=== PATIENT | female | born 1950 | race Caucasian/White ===

== ENCOUNTER 2019-10-14 14:32 | Outpatient (CLI) | payer MEDICARE, OTHER, SELFPAY ==
--- NOTE | 2019-10-14 14:49 | MM_ITS ---
WS: [id number] BILATERAL SCREENING DIGITAL MAMMOGRAM WITH CAD HISTORY: SCREENING COMPARISON: 04/05/2018 and 09/05/2017 and 02/15/2017 Bilateral CC and MLO views submitted. Computer aided detection analyzed. Breast composition: There are scattered areas of fibroglandular density. No suspicious masses, microc alcifications or architectural distortion. Benign calcifications within each breast. MM/[place] [id number] IMPRESSION: BI-RADS: 2-Benign FOLLOW UP: 1 Year Follow-up
== END 2019-10-14 14:33 | disposition home or self-care (01) ==
LOC: RADSHAW 14:47
PROVIDERS: PCP Family Medicine; Visit Provider Family Medicine
DX: Z12.31 Encounter for screening mammogram for malignant neoplasm of breast (principal)
CPT/HCPCS: 77067

== ENCOUNTER 2020-11-30 12:15 | Outpatient (CLI) | payer MEDICARE, OTHER, SELFPAY ==
--- NOTE | 2020-11-30 12:26 | US_ITS ---
WS: [id number] TRANSABDOMINAL PELVIC AND TRANSVAGINAL PELVIC ULTRASOUND HISTORY: VAGINAL BLEEDING COMPARISON: None. Technically very limited evaluation of the uterus and adnexa. Uterus: 6.9 cm x 3.4 cm x 2.7 cm. Uterus is retroverted. No fibroid identified. Uterus appears small. Endometrium: 0.8 cm. Endometrium is poorly visualized and measures just slightly greater than expecte d for normal. Proximal portion of the endometrium is slightly bulbous as compared to the remaining en dometrium. Neither ovary is identified. No adnexal masses. There is no free fluid. US/US pelvic with transvaginal IMPRESSION: 1. Difficult evaluation of the uterus and adnexa. 2. Neither ovary identified. 3. Slightly bulbous endometrium measures slightly greater than expected. Hyper plasia versus endometrial neoplasm. Hysteroscopy may be necessary.
== END 2020-11-30 12:16 | disposition home or self-care (01) ==
LOC: RAD 12:21
PROVIDERS: PCP Family Medicine; Visit Provider Family Medicine
DX: N93.9 Abnormal uterine and vaginal bleeding, unspecified (principal)
CPT/HCPCS: 76830; 76856

== ENCOUNTER → 2021-01-18 16:40 | Outpatient (BNVA) | payer MEDICARE, OTHER, SELFPAY | PROVIDERS: PCP Family Medicine; Visit Provider Obstetrics & Gynecology | DX: N95.0 Postmenopausal bleeding (principal) | CPT/HCPCS: 88175 ==

== ENCOUNTER → 2021-01-28 14:40 | Outpatient (BNVA) | payer MEDICARE, OTHER, SELFPAY | PROVIDERS: PCP Family Medicine; Visit Provider Obstetrics & Gynecology | DX: N84.0 Polyp of corpus uteri (principal); Z20.822 Contact with and (suspected) exposure to COVID-19 | CPT/HCPCS: 87635 ==

== ENCOUNTER 2021-02-03 06:00 | Day surgery (SDC) | payer MEDICARE, OTHER, SELFPAY ==
[2021-01-27 13:55] VITALS: BMI 43.2
--- NOTE | 2021-01-27 14:38 | P.ANESASSM_ITS ---
Pre-Anesthetic Assessment Pre-Anesthetic Assessment: Height/Weight: Height 1.51 m Weight 98.883 kg Preop Diagnosis: Endometrial polyp Proposed Procedure: Operation Date: 02/03/21 07:00 Proposed Procedures p Hysteroscopy w/ Myosure [id number] n84.0(Not Applicable) - Jasmyn Davidson MD s Dilation And Curettage (D&C)(Not Applicable) - Jasmyn Singh MD Familial anesthetic complications: None Was Beta Herb taken within 24 hours: N/A Was Clonidine taken within 24 hours: N/A Social: Social History: No alcohol and No tobacco Exam: Pre-Anes Outpt Exam: alert, oriented x 3, clear to auscultation bilaterally and regular rate & rhythm Airway: Cervical ROM: WNL MP: 3 Dentition: Partials CV/HEM: CV/HEM: HTN GI: GI: GERD Metabolic: Metabolic: Morbid obesity Neuropsych: Neuropsych: Neuropathy Anesthetic Plan: Anesthesia: General Other: patient declines all albumin, blood products, and cellsaver even in continuity Risk of > 500 ml blood loss (7ml/kg in children): No PFSH Anesthesia PFSH: Medical History Chronic hypertension Diagnosed in 2011 and has been on medication since that managed by her primary care provider. 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 No pertinent past medical history Denies diabetes, asthma, seizures, DVT/PE PCP: Dr. Bazzi Surgical History S/P cholecystectomy laparoscopic procedure in 2011 Family History Father Diabetes Heart disease Brother Heart disease x 2 Denies family history of Colon cancer Ovarian cancer Hyperlipidemia Breast cancer Hypertension Uterine cancer Thyroid condition Stroke Data Anesthesia Cardiac Studies: No Data to Display
[2021-01-27 16:52] LABS: Basophils # 0.1 10^3/uL (0.0-0.1); Basophils % 0.5 %; Eosinophils # 0.1 10^3/uL (0.0-0.8); Eosinophils % 1.2 %; Hematocrit 39.7 % (37.0-47.0); Hemoglobin 12.3 g/dL (11.5-15.3); Lymphocytes # 3.4 10^3/uL (0.8-4.8); Lymphocytes % 29.7 %; Mean Corpuscular Hemoglobin 26.4 pg (28.0-34.0); Mean Corpuscular Volume 85.2 fL (81-99); Mean Platelet Volume 10.5 fL (7.4-10.4); Monocytes # 0.7 10^3/uL (0.2-0.9); Monocytes % 6.3 %; Neutrophils # 7.15 10^3/uL (1.8-7.7); Neutrophils % 61.9 %; Nucleated Red Blood Cells % 0 %; Platelet Count 470 10^3/cmm (130-400); Red Blood Count 4.66 10^6/uL (4.1-5.3); Red Cell Distribution Width 15.9 % (12.1-15.1); White Blood Count 11.6 10^3/uL (4.0-10.0)
[2021-01-27 17:18] LABS: Alanine Aminotransferase 23 U/L (0-33); Albumin Level 3.9 g/dL (3.5-5.2); Alkaline Phosphatase 101 IU/L (35-105); Anion Gap 13.5 (5-19); Aspartate Amino Transferase 25 U/L (0-32); Blood Urea Nitrogen 17 mg/dL (8-23); Calcium 9.3 mg/dL (8.5-10.5); Carbon Dioxide 28 mmol/L (22-29); Chloride 99 mmol/L (98-107); Globulin 3.3 g/dL (1.3-4.6); Glomerular Filtration Rate 71.1 mL/min (90-130); Glucose 94 mg/dL (65-115); Osmolality Calculated 285 mOsm/kg (285-295); Potassium 3.5 mmol/L (3.5-5.1); Sodium 137 mmol/L (136-145); Total Bilirubin 0.5 mg/dL (0.15-1.2); Total Protein 7.2 g/dL (6.6-8.7)
[2021-01-27 20:21] LABS: Bacteria Urine 4+ /hpf; Bilirubin Urine Neg (Negative); Blood Urine Neg (Negative); Glucose Urine UA Norm (Normal); Ketones Urine Negative (Negative); Leukocyte Esterase Urine 1+ (Negative); Nitrate Urine Negative (Negative); Protein Urine Neg (Negative); RBC Urine 0-4 /hpf (0-2); Specific Gravity, Urine 1.005 (1.005-1.030); Squamous Epithelial Cell Urine 0-4 /hpf (0-5); Urine Appearance Cloudy (CLEAR); Urine Color Yellow (Yellow); Urobilinogen Urine Norm (Negative); WBC Urine 15-25 /hpf (0-5); pH Urine 6 (5-7)
[2021-02-03 06:20] VITALS: BP 199/83; PULSE 85; RESP 18; TEMP 36.6; O2SAT 97
[2021-02-03] MEDS: sodium chloride 0.9% 1,000 ML 30 ML IV (06:35)
--- NOTE | 2021-02-03 06:52 | P.HPUD_ITS ---
Surgery/Procedure H&P Update DATE OF PROCEDURE: February 03, 2021 DATE H&P PERFORMED: 01/18/21 H&P UPDATE INFORMATION: I have reviewed H&P completed within last 30 days, I have examined patient prior to procedure, No changes to prior documentation and H&[place] is in [facility] date indicated PREOP DIAGNOSIS: Endometrial polyp PLANNED PROCEDURE: Operation Date: 02/03/21 07:00 Proposed Procedures p Hysteroscopy w/ Myosure [id number] 61405 n84.0(Not Applicable) - Jasmyn Davidson MD s Dilation And Curettage (D&C)(Not Applicable) - Jasmyn Singh MD
[2021-02-03 07:09] LABS: OR HCG Qualitative Urine Negative (Negative)
[2021-02-03] MEDS: silver nitrate applicator 2 EACH TOPICAL (07:32)
[2021-02-03 07:42] VITALS: BP 121/62; PULSE 94; RESP 16; TEMP 36.1; O2SAT 91
--- NOTE | 2021-02-03 07:43 | P.ANESUD_ITS ---
Pre-Anesthetic Update Pre-Anesthetic Assessment: Date of Surgery/Procedure: 02/03/21 Preop [place] gnosis: Endometrial polyp Proposed Procedure: Operation Date: 02/03/21 07:00 Proposed Procedures p Hysteroscopy w/ Myosure 88906 [id number] n84.0(Not Applicable) - Jasmyn Davidson MD s Dilation And Curettage (D&C)(Not Applicable) - Jasmyn Singh MD Any changes to Pre-Anesthetic Assessment?: No Last Intake: Intake Last Liquid Date 02/02/21 Last Liquid Time 22:30 Last Solid Date 02/02/21 Last Solid Time 21:30 Labs Last 48hrs: Laboratory Results - last 48 hr 02/03/21 02/03/21 07:04 07:08 Urine HCG, Qual Cancelled Negative Vitals: Temperature 97.9 F 02/03/21 06:20 Temperature Source Temporal Artery S can 02/03/21 06:20 Pulse Rate 85 02/03/21 06:20 Respiratory Rate 18 02/03/21 06:20 Blood Pressure 199/83 02/03/21 06:20 Blood Pressure Josette n 121 02/03/21 06:20 Pulse Oximetry 97 02/03/21 06:20 Oxygen Delivery Me thod 02/03/21 06:20 Exam: Pre-Anes Outpt Exam: alert, oriented x 3, clear to auscultation bilaterally and regular rate & rhythm Cardiac Studies: No Data to Display
[2021-02-03 07:45] VITALS: BP 116/58; PULSE 93; RESP 19; O2SAT 93
--- NOTE | 2021-02-03 07:48 | P.OP_ITS ---
Operative Report Date of procedure: February 03, 2021 OPERATIVE REPORT Date of surgery: 02/03/2021 Date of dictation: 02/03/2021 Preoperative diagnosis: Endometrial polyp, prolapse Postoperative diagnosis/findings: Grade 2 through 3 uterine prolapse, grade 2 cystocele, grade 1-2 rectocele, 6 weeks size midposition uterus, on hysteroscopy thin endometrium however new fundus multiple small endometrial polyps all subcentimeter in size. No endocervical abnormalities noted. Procedure done: Hysteroscopy, D&C with MyoSure--polypectomy Specimens removed/disposition of specimens: Endometrial polyp and endometrial curettings sent together to pathology. Surgeon: Dr. Jasmyn Villegas executive marketing assistant: Catrachita Anesthesia: Laryngeal mask anesthesia Estimated blood loss: Less than 25 ml Intravenous fluids: 400 mL of LR Urine output: 40 mL of urine at the end of procedure via red rubber catheter. Medications: As per anesthesia records Complications:, Patient was taken to the recovery room in a stable condition. PROCEDURE: After consent was obtained patient was taken to the operating room where she is placed under laryngeal mask anesthesia without any difficulty. She was placed supine on the table in lithotomy position. Care was taken to ensure that her legs were well positioned to avoid pressure points. She was then prepped and draped in the usual sterile fashion. Exam under anesthesia was done at this time which showed a findings noted above. The weighted speculum and lateral vaginal wall retractors were placed in the vagina and the cervix was visualized. The cervix was normal.. The cervix was dilated to a 16 Noe dilator. This allowed placement of a 3 mm hysteroscope into the uterine cavity without any difficulty. Once the hysteroscope was placed in the uterine cavity, the endocervical canal was visualized and appeared normal .the uterine cavity was visualized and findings noted above. The MyoSure was used and polypectomy and D&C performed. The MyoSure hysteroscope was removed and sharp curettage was performed as well.The endometrial curettings were sent to pathology along with specimen from hysteroscopy.. No active bleeding was noted from the cervix. Tenaculum was removed and hemostasis was achieved with silver nitrate.. Good hemostasis was achieved. All instruments were removed from the vagina. Patient was cleaned well and anesthesia was reversed without any difficulty. She was taken to the recovery in a stable condition. FOLLOW UP: Follow-up in 2 weeks and 6 weeks with surgeon MEDICATION ON DISCHARGE: Colace 100 mg by mouth every 12 hours when necessary constipation, 30 tablets, no refills Ibuprofen 800 mg by mouth every 8 hours when necessary pain, 60 tablets, no refills. Continue other home medication DISPOSITION: Home in a stable condition This documentation was created by [employer] child guidance counselor software (known for inherent child guidance counselor error). Every effort was made to assure accuracy of child guidance counselor. Any obvious errors or omissions should be clarified with the author of the document. Pre-op Diagnosis: Endometrial polyp Associated Problem List Diagnoses (1) Refusal of blood transfusions as patient is [employer]:
[2021-02-03 07:50] VITALS: BP 124/50; PULSE 85; RESP 16; O2SAT 93
[2021-02-03 07:55] VITALS: BP 129/52; PULSE 89; RESP 14; TEMP 36.4; O2SAT 94
[2021-02-03 08:00] VITALS: BP 115/55; PULSE 87; RESP 15; TEMP 36.4; O2SAT 94
--- NOTE | 2021-02-03 14:40 | ANE.PACU2 ---
Inpatient post-anesthesia follow up: Airway intact: Yes Vital signs: Temperature 97.6 F Pulse Rate 87 Respiratory Rate 15 Blood Pressure 115/55 Pulse Oximetry 94 Oxygen Delivery Me thod Room Air Oxygen Flow Rate Fraction of Inspir ed Oxygen Hydration adequate: Yes Nausea and vomiting: No Pain level: 2 Mental status: Baseline
== END 2021-02-03 08:27 | disposition home or self-care (01) ==
PROVIDERS: Anesthesiology; PCP Family Medicine; Visit Provider Obstetrics & Gynecology
PROC: 0UDB8ZZ Extraction of Endometrium, Via Natural or Artificial Opening Endoscopic (ICD-10-PCS; CPT 58558; principal; 2021-02-03 07:00)
PROC: (CPT 58120; 2021-02-03 07:00)
DX: N84.0 Polyp of corpus uteri (principal); I10 Essential (primary) hypertension; K21.9 Gastro-esophageal reflux disease without esophagitis; E66.01 Morbid (severe) obesity due to excess calories; Z68.41 Body mass index [BMI] 40.0-44.9, adult; Z82.49 Family history of ischemic heart disease and other diseases of the circulatory system; Z83.3 Family history of diabetes mellitus
CPT/HCPCS: 58558; 80053; 81001; 84703; 85025; 87077; 87086; 87186; 88305; J2405; J2704; J3010; J3490; J7030

== ENCOUNTER → 2021-02-15 00:01 | Outpatient (BNVA) | payer MEDICARE, OTHER, SELFPAY | PROVIDERS: PCP Family Medicine; Visit Provider Obstetrics & Gynecology | DX: R10.9 Unspecified abdominal pain (principal); R30.0 Dysuria | CPT/HCPCS: 87086 ==

== ENCOUNTER 2023-03-13 12:37 | Outpatient (CLI) | payer MEDICARE, OTHER, SELFPAY ==
--- NOTE | 2023-03-13 12:52 | USCV_ITS ---
Patel Ussan Age: 72 Gender: F : 1950 Exam Date: 03/13/2023 13:14 Ordering Phys: Rylee Bazzi DO Technologist: Avril Guerrero [place]am [place] [facility] [place] Indication: SOB AND LOWER LEG EDEMA BP: 140 / 80 HR: 79 Rhythm: Sinus Technical Quality: Technically difficult study MEASUREMENTS (Male / Female) Normal Values 2D ECHO LV Diastolic Diameter PLAX 2.9 cm 4.2 - 5.9 / 3.9 - 5.3 cm LV Systolic Diameter PLAX 2.7 cm LV Chamber Size 2.8 cm IVS Diastolic Thickness 1.2 cm 0.6 - 1.0 / 0.6 - 0.9 cm IVS Systolic Thickness 1.1 cm LVPW Diastolic Thickness 1.4 cm 0.6 - 1.0 / 0.6 - 0.9 cm LVPW Systolic Thickness 1.5 cm RV Chamber Size 2.6 cm LVOT Diameter 2.0 cm LV Ejection Fraction 2D Teich 15.8 % LV Ejection Fraction MOD 2C 65.2 % LV Ejection Fraction 2C AL 64.0 % LA Diameter 3.1 cm LA Width 2.2 cm LA Height 3.7 cm RA Width 4.1 cm RA Height 3.3 cm Aorta at Sinotubular Diameter 2.8 cm IVC Diameter 2.0 cm M-MODE Aortic Annulus Diameter 3.2 cm LA Ao Ratio MM 1.3 MV E Point Septal Separation 0.4 cm DOPPLER AV Peak Velocity 144.0 cm/s LVOT Peak Velocity 96.0 cm/s AV Area Cont Eq vti 2.5 cm squared AV Area Cont Eq pk 2.2 cm squared MV Area PHT 4.1 cm squared Mitral E to A Ratio 0.8 MV E' Velocity 46.5 cm/s Mitral E to MV E' Ratio 17.0 Mitral E to LV E' Lateral Ratio 20.6 Mitral E to LV E' Septal Ratio 14.8 TR Peak Velocity 156.7 cm/s TR Peak Gradient 9.8 mmHg TR Mean Velocity 119.8 cm/s TR Mean Gradient 6.2 mmHg TR Velocity Time Integral 40.9 cm TV Peak E Velocity 46.0 cm/s Right Atrial Pressure 3.0 mmHg Pulmonary Artery Systolic Pressu 12.8 mmHg RV Acceleration Time 0.1 s RV Ejection Time 0.3 s RV AcT/ET 0.4 FINDINGS Left Ventricle Poor quality study due to obesity. Probably normal right and left ventricular systolic function. Ejection fraction estimated 55 to 60%. Grade 1 diastolic dysfunction. Right Ventricle Normal right ventricular size and systolic function. Normal right ventricular systolic pressure. Right Atrium The right atrium is normal in size. Left Atrium The left atrium is normal in size. Mitral Valve Mitral valve not well seen. No obvious stenosis or regurgitation. Aortic Valve Aortic valve not well seen. No obvious stenosis or regurgitation. Tricuspid Valve Tricuspid valve not well visualized. Pulmonic Valve Pulmonic valve not well visualized. Pericardium Normal pericardium without effusion. Aorta Normal ascending aorta dimension. IVC The inferior vena cava appears normal. CONCLUSIONS Poor quality study due to obesity. Probably normal right and left ventricular systolic function. Ejection fraction estimated 55 to 60%. Grade 1 diastolic dysfunction. There are no prior echocardiogram studies to compare. Dr. Sigifredo Johnson MD (Electronically Signed) Final Date: 13 March 2023 17:07 S
== END 2023-03-13 12:38 | disposition home or self-care (01) ==
PROVIDERS: PCP Family Medicine; Visit Provider Family Medicine
DX: R60.0 Localized edema (principal); R06.02 Shortness of breath; E66.9 Obesity, unspecified; I51.89 Other ill-defined heart diseases
CPT/HCPCS: 93306